=== PATIENT | male | born 1935 | race Caucasian/White ===

== ENCOUNTER 2017-01-08 07:30 | Emergency (ER) | payer OTHER ==
[~2017-01-08] VITALS: Ht 170.2 cm; Wt 56.0 kg
[2017-01-08 07:37] VITALS: BP 135/60; PULSE 91; RESP 16; TEMP 98; O2SAT 98
[2017-01-08] MEDS ORDERED: WARF4TAB51 PO (07:56)
[2017-01-08] MEDS ORDERED: VENL50TA PO (07:56)
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
== END 2017-01-08 09:19 | disposition home or self-care (01) ==
LOC: PHED 07:30
DX: T83.9XXA Unspecified complication of genitourinary prosthetic device, implant and graft, initial encounter (principal); Z87.448 Personal history of other diseases of urinary system
CPT/HCPCS: 51702

== ENCOUNTER 2018-02-15 00:11 | Observation (INO) ==
[2018-02-15] MEDS ORDERED: Morphine Sulfate Inj 2 MG/ML Vial IV.PUSH ONE (00:57)
--- NOTE | 2018-02-15 01:08 | ED ---
HPI General Chief complaint: Abdominal Pain Stated complaint: Diarrhea & abdom pain x 1 day Time Seen by Provider: 02/15/18 00:34 Source: patient Mode of arrival: ambulatory Limitations: no limitations History of Present Illness HPI narrative: 82yo F with PMH of afib on coumadin, Hanover's disease, chronic underwood catheter since 2013 here with c/o lower abdominal pain for a few days. +Nonbloody diarrhea. Said he had his underwood catheter replaced 5 days ago at the [facility]. Denies any fever, chest pain, sob, n/v, focal weakness or numbness. Related Data Home Medications Medication Instructions Recorded Confirmed metoprolol succinate 25 mg PO DAILY 11/11/17 02/15/18 venlafaxine [Effexor XR] 150 mg PO DAILY 11/11/17 12/07/17 warfarin 2 mg PO DAILY 11/11/17 02/15/18 warfarin 3 mg PO DAILY 12/07/17 02/15/18 Allergies Allergy/AdvReac Type Severity Reaction Status Date / Time iodine Allergy Severe Anaphylaxis Verified 02/15/18 00:31 Review of Systems ROS: all other systems reviewed are negative [facility] Medical History Medical History Hanover's disease (Acute) Kidney failure (Acute) Kidney stones (Acute) Cardiomyopathy (Acute) Coronary artery disease (Acute) History of frequent urinary tract infections (Acute) Hypertension (Acute) Surgical History Surgical History History of kidney surgery (Acute) History of knee surgery (Acute) Hx of appendectomy (Acute) Hx of tonsillectomy (Acute) Hx of cardiac cath (Acute) Social History Social History Substance History: No History of Abuse Second Hand Smoke Exposure: No Smoking Status: Never smoker How Often Do You Have a Drink Containing Alcohol: Never Recent Travel in [facility] within the Last 8 Weeks: No Recent Out of Country Travel within the Last 8 Weeks: No Immunization History Tetanus Immunization: Unsure Exam Narrative Exam Narrative: GENERAL: 82yo M in mild distress. SKIN: Focused skin assessment warm/dry. HEAD: Atraumatic. Normocephalic. EYES: Pupils equal and round. No scleral icterus. No injection or drainage. CARDIOVASCULAR: Regular rate and rhythm. No murmur appreciated. RESPIRATORY: No accessory muscle use. Clear to auscultation. Breath sounds equal bilaterally. GASTROINTESTINAL: Abdomen soft, +TTP RLQ, suprapubic. No rebound tenderness or guarding. : Underwood in place with very small amount of yellow urine. No testicular ttp. No blood. MUSCULOSKELETAL: No obvious deformities. No clubbing. No cyanosis. No edema. NEUROLOGICAL: Awake and alert. No obvious cranial nerve deficits. Motor grossly within normal limits. Normal speech. PSYCHIATRIC: Appropriate mood and affect; insight and judgment normal. Course Initial Documented Vital Signs Temperature 98.5 F 02/15/18 00:17 Pulse Rate 86 02/15/18 00:17 Respiratory Rate 16 02/15/18 00:17 Blood Pressure 176/86 H 02/15/18 00:17 Pulse Oximetry 96 02/15/18 00:17 Last Documented Vital Signs Temperature 98.5 F 02/15/18 00:17 Pulse Rate 83 02/15/18 02:15 Respiratory Rate 18 02/15/18 02:15 Blood Pressure 164/77 H 02/15/18 02:15 Pulse Oximetry 100 02/15/18 02:15 Medical Decision Making [facility] Narrative Medical decision making narrative: 82yo M here with lower abdominal pain and diarrhea. Pt had appendectomy already. Labs reviewed, no leukocytosis. CMP unremarkable. Lipase normal. INR subtherapeutic at 1.6. CT a/p showed moderate to marked bilateral hydronephrosis with a distended urinary bladder despite a underwood catheter in place. 5mm right UVJ stone. Bilateral hydroureter to the level of the UVJ with 5mm stone on right. Prostate gland is moderately enlarged impinging on the bladder base. Underwood catheter was changed and 1000mg of urine came out. UA showed positive nitrate. WBC 21-50. Pt given ceftriaxone. I feel that with bilateral hydronephrosis and hydroureter as well as enlarged prostate and UTI, pt will benefit from observation and urology consult. Discussed with Dr. Ponce and accepted to her service. Medical Screen Exam Complete: Yes Emergency Medical Condition: Yes Differential Diagnosis Differential Diagnosis: Colitis vs. malignancy vs. obstruction Lab Data Result diagrams: 02/15/18 01:10 02/15/18 01:10 Lab Results 02/15/18 02/15/18 02/15/18 Range/Units 01:10 01:10 01:10 CBC w Diff Auto diff final WBC 9.8 (4.0-11.0) th/mm3 RBC 4.22 L (4.50-5.90) mil/mm3 Hgb 13.3 (13.0-17.0) gm/dL Hct 38.1 L (39.0-51.0) % MCV 90.3 (80.0-100.0) fL MCH 31.5 (27.0-34.0) pg MCHC 34.9 (32.0-36.0) % RDW 13.9 (11.6-17.2) % Plt Count 323 (150-450) th/mm3 MPV 7.5 (7.0-11.0) fL Neut % (Auto) 60.7 (16.0-70.0) % Lymph % (Auto) 27.4 (9.0-44.0) % [place] % (Auto) 8.4 H (0.0-8.0) % Eos % (Auto) 2.6 (0.0-4.0) % Baso % (Auto) 0.9 (0.0-2.0) % Neut # (Auto) 5.9 (1.8-7.7) th/mm3 Lymph # (Auto) 2.7 (1.0-4.8) th/mm3 [place] # (Auto) 0.8 (0.0-0.9) th/mm3 Eos # (Auto) 0.3 (0.0-0.4) th/mm3 Baso # (Auto) 0.1 (0.0-0.2) th/mm3 WBC Differential . Differential Comment . PT 15.9 H (9.8-11.6) sec INR 1.6 Ratio APTT 36.1 H (24.3-30.1) sec Sodium 142 (136-145) meq/L Potassium 4.5 (3.5-5.1) meq/L Chloride 108 H (98-107) meq/L Carbon Dioxide 26.9 (21.0-32.0) meq/L Anion Gap 7 (5-15) meq/L BUN 16 (7-18) mg/dL Creatinine 0.93 (0.60-1.30) mg/dL Estimated GFR 77 L (>89) mL/min Random Glucose 93 (74-106) mg/dL Calcium 9.4 (8.5-10.1) mg/dL Total Bilirubin 0.3 (0.2-1.0) mg/dL AST 24 (15-37) U/L ALT 24 (12-78) U/L Alkaline Phosphatase 105 (45-117) U/L Total Protein 7.3 (6.4-8.2) g/dL Albumin 3.5 (3.4-5.0) g/dL Lipase 80 (73-393) U/L Urine Color (Yellw/Straw) Urine Clarity (Clear) Urine pH (5.0-8.5) Ur Specific [place] (1.002-1.035) Urine Protein (Neg-Trace) mg/dL Urine Glucose (UA) (Negative) mg/dL Urine Ketones (Negative) mg/dL Urine Occult Blood (Negative) Urine Nitrate (Negative) Urine Bilirubin (Negative) Urine Urobilinogen (Less than 2) mg/dL Ur Leukocyte Esterase (Negative) Urine RBC (0-3) /hpf Urine WBC (0-5) /hpf Ur Squamous Epith Cells (0-5) /hpf Urine Bacteria (None) /hpf Micro UA Comment Ur Microscopic Review Urine Culture Comments 02/15/18 Range/Units 03:00 CBC w Diff WBC (4.0-11.0) th/mm3 RBC (4.50-5.90) mil/mm3 Hgb (13.0-17.0) gm/dL Hct (39.0-51.0) % MCV (80.0-100.0) fL MCH (27.0-34.0) pg MCHC (32.0-36.0) % RDW (11.6-17.2) % Plt Count (150-450) th/mm3 MPV (7.0-11.0) fL Neut % (Auto) (16.0-70.0) % Lymph % (Auto) (9.0-44.0) % [place] % (Auto) (0.0-8.0) % Eos % (Auto) (0.0-4.0) % Baso % (Auto) (0.0-2.0) % Neut # (Auto) (1.8-7.7) th/mm3 Lymph # (Auto) (1.0-4.8) th/mm3 [place] # (Auto) (0.0-0.9) th/mm3 Eos # (Auto) (0.0-0.4) th/mm3 Baso # (Auto) (0.0-0.2) th/mm3 WBC Differential Differential Comment PT (9.8-11.6) sec INR Ratio APTT (24.3-30.1) sec Sodium (136-145) meq/L Potassium (3.5-5.1) meq/L Chloride (98-107) meq/L Carbon Dioxide (21.0-32.0) meq/L Anion Gap (5-15) meq/L BUN (7-18) mg/dL Creatinine (0.60-1.30) mg/dL Estimated GFR (>89) mL/min Random Glucose (74-106) mg/dL Calcium (8.5-10.1) mg/dL Total Bilirubin (0.2-1.0) mg/dL AST (15-37) U/L ALT (12-78) U/L Alkaline Phosphatase (45-117) U/L Total Protein (6.4-8.2) g/dL Albumin (3.4-5.0) g/dL Lipase (73-393) U/L Urine Color Yellow (Yellw/Straw) Urine Clarity Cloudy H (Clear) Urine pH 8.5 (5.0-8.5) Ur Specific [place] 1.010 (1.002-1.035) Urine Protein Trace (Neg-Trace) mg/dL Urine Glucose (UA) Negative (Negative) mg/dL Urine Ketones Negative (Negative) mg/dL Urine Occult Blood Large H (Negative) Urine Nitrate Positive H (Negative) Urine Bilirubin Negative (Negative) Urine Urobilinogen 0.2 (Less than 2) mg/dL Ur Leukocyte Esterase Large H (Negative) Urine RBC 4-15 H (0-3) /hpf Urine WBC 21-50 H (0-5) /hpf Ur Squamous Epith Cells 0-5 (0-5) /hpf Urine Bacteria Many H (None) /hpf Micro UA Comment Cath-culture ind Ur Microscopic Review Microscopic reviewed Urine Culture Comments Cath-cult indicated Imaging Data Radiologist's impression: Abdomen/Pelvis CT 02/15/18 00:56 CONCLUSION: 1. Moderate to marked bilateral hydronephrosis with a distended urinary bladder despite a Underwood in place. Correlation with function of the Underwood is recommended. 5 mm right ureterovesical junction stone. Discharge Plan Discharge Disposition Patient Disposition: 30 Still Patient Discharge Details Diagnosis: Acute bilateral obstructive uropathy Physicians Team ED Provider: Alicia Barrios Primary Care Provider: [facility],Physician [facility] /Orders / Referrals /Forms Prescriptions: No Action warfarin 1 mg Tablet 2 mg PO DAILY RF: 0 metoprolol succinate 25 mg Tablet Extended Release 24 Hr 25 mg PO DAILY RF: 0 venlafaxine [Effexor XR] 75 mg Capsule,Extended Release 24hr 150 mg PO DAILY RF: 0 warfarin 3 mg Tablet 3 mg PO DAILY RF: 0 Discharge Interventions Interventions: Vital Signs Last Done: 02/15/18 02:15 Status ED Status: Admitted Observation Patient
[2018-02-15 01:20] LABS: Baso # (Auto) 0.1 th/mm3 (0.0-0.2); Baso % (Auto) 0.9 % (0.0-2.0); Eos # (Auto) 0.3 th/mm3 (0.0-0.4); Eos % (Auto) 2.6 % (0.0-4.0); Hematocrit 38.1 % (39.0-51.0); Hemoglobin 13.3 gm/dL (13.0-17.0); Lymph # (Auto) 2.7 th/mm3 (1.0-4.8); Lymph % (Auto) 27.4 % (9.0-44.0); Mean Corpuscular HGB Conc 34.9 % (32.0-36.0); Mean Corpuscular Hemoglobin 31.5 pg (27.0-34.0); Mean Corpuscular Volume 90.3 fL (80.0-100.0); Mean Platelet Volume 7.5 fL (7.0-11.0); Mono # (Auto) 0.8 th/mm3 (0.0-0.9); Mono % (Auto) 8.4 % (0.0-8.0); Neut # (Auto) 5.9 th/mm3 (1.8-7.7); Neut % (Auto) 60.7 % (16.0-70.0); Platelet Count 323 th/mm3 (150-450); Red Blood Count 4.22 mil/mm3 (4.50-5.90); Red Cell Distribution Width 13.9 % (11.6-17.2); White Blood Count 9.8 th/mm3 (4.0-11.0)
[2018-02-15 01:27] LABS: Chloride 108 meq/L (98-107); Potassium 4.5 meq/L (3.5-5.1); Sodium 142 meq/L (136-145)
[2018-02-15 01:30] LABS: Calcium 9.4 mg/dL (8.5-10.1)
[2018-02-15 01:31] LABS: Activated Partial Thrombo Time 36.1 sec (24.3-30.1); Albumin 3.5 g/dL (3.4-5.0); Anion Gap 7 meq/L (5-15); Blood Urea Nitrogen 16 mg/dL (7-18); Carbon Dioxide 26.9 meq/L (21.0-32.0); Glucose,Random 93 mg/dL (74-106); INR 1.6 Ratio; Lipase 80 U/L (73-393); Prothrombin Time 15.9 sec (9.8-11.6)
[2018-02-15 01:34] LABS: Alanine Aminotransferase 24 U/L (12-78); Aspartate Aminotransferase 24 U/L (15-37); Glomerular Filtration Rate 77 mL/min (>89)
[2018-02-15 01:36] LABS: Total Protein 7.3 g/dL (6.4-8.2)
[2018-02-15 01:37] LABS: Alkaline Phosphatase 105 U/L (45-117)
[2018-02-15] MEDS ORDERED: Ketorolac Inj 30 MG/ML (IVP) Vial IV.PUSH ONE (02:00)
--- NOTE | 2018-02-15 02:20 | CT ---
EXAM DATE: 02/15/2018 1:12 AM EDT AGE/SEX: 82 years / Male INDICATIONS: Intermittent epigastric pain for one week. Diarrhea. CLINICAL DATA: This is the patient's initial encounter. Patient reports that signs and symptoms have been present for 1 week and indicates a pain score of 5/10. MEDICAL/SURGICAL HISTORY: Hypertension. Renal failure, chronic. Cardiovascular disease. Griffin ington's disease. Appendectomy. Renal surgery. RADIATION DOSE: 7.09 CTDI (mGy) COMPARISON: No prior exams available for comparison. TECHNIQUE: Multiple contiguous axial images were obtained through the abdomen. Images were obtained using multiple row detector helical technique. Using automated exposure control and adjustment of the mA and/or kV according to patient size, radiation dose was kept as low as reasonably achievable to o btain optimal diagnostic quality images. DICOM format image data is available electronically for rev iew and comparison. FINDINGS: Examination of the lung bases demonstrates no abnormality. No pleural fluid is identified. No pulmona ry nodules are present. The liver and spleen are normal in size and no focal defects are identified. The gallbladder and pancreas are unremarkable. No intrahepatic or extrahepatic ductal dilatation is seen. The adrenal glands are unremarkable. There is moderate to marked hydronephrosis bilaterally w ith bilateral extrarenal pelves and nonobstructing stones in the calyces measuring 15 mm on the right and 10 mm on the left. There is bilateral hydroureter to the level of the ureterovesical junction wi th a 5 mm stone on the right. Multiple small bladder calculi are present. The bladder is distended wi th a Melendez catheter in place and correlation with function of the catheter is recommended. The prosta te gland is moderately enlarged impinging on the bladder base. There is diverticulosis without eviden ce of diverticulitis. CONCLUSION: 1. Moderate to marked bilateral hydronephrosis with a distended urinary bladder despite a Melendez in p lace. Correlation with function of the Melendez is recommended. 5 mm right ureterovesical junction stone . Electronically signed by: Sudeep Lizama MD 02/15/2018 2:18 AM EDT
[2018-02-15 03:03] LABS: Bilirubin,Urine Negative (Negative); Clarity,Urine Cloudy (Clear); Color,Urine Yellow (Yellw/Straw); Glucose,Urine (UA) Negative (Negative); Leukocyte Esterase,Urine Large (Negative); Nitrite,Urine Positive (Negative); PH,Urine 8.5 (5.0-8.5); Urobilinogen,Urine 0.2 mg/dL (Less than 2)
[2018-02-15] MEDS ORDERED: Acetaminophen 500 MG Tablet PO ONE (03:06)
[2018-02-15 03:07] LABS: Bacteria,Urine Many /hpf; Squamous Epithelial Cell,Urine 0-5 /hpf (0-5); WBC,Urine 21-50 /hpf (0-5)
[2018-02-15] MEDS ORDERED: Acetaminophen 325 MG Tablet PO PRN (03:18)
[2018-02-15] MEDS ORDERED: Morphine Sulfate Inj 2 MG/ML Vial IV.PUSH PRN (03:18)
[2018-02-15] MEDS ORDERED: Bisacodyl 10 MG Supp RECTAL PRN (03:18)
[2018-02-15] MEDS: Sod Chloride 0.9% Inj 1,000 ML IV.CONT SCH ×3 (03:47→17:11)
--- NOTE | 2018-02-15 08:19 | P.HP ---
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 Patient states that he was seen by his neurologist at the [place], Dr. Frausto, roughly 5 days ago he did have his chronic Melendez catheter replaced, since that time he states he has had abdominal pain located in his bilateral lower quadrants. He states that he also has associated diarrhea. He denies any recent antibiotic use. He denies any recent fever, chills, headache, chest pain , nausea, vomiting, diarrhea or dysuria. Patient does live at home with his daughter, is able to perform most ADLs per self, uses a walker at home. At the time of assessment patient states that his pain is improved. Melendez catheter in place with clear yellow urine noted. Patient does complain of continued diarrhea even this morning. Will send stool studies. Abdominal/pelvis CT showing bilateral hydronephrosis. Urology consulted and awaiting input. UTI and on ceftriaxone IV. - Diagnosis (1) Hydronephrosis (2) Acute bilateral obstructive uropathy Review of Systems All other systems reviewed negative except as stated in HPI PMFSH - History History Provided By: Patient - Medical History Medical History: Medical History (Last Reviewed 02/15/18 @ 08:17 by Darleen Benitez) Kemper's disease Kidney failure Kidney stones Cardiomyopathy Coronary artery disease History of frequent urinary tract infections Hypertension - Surgical History Surgical History: Surgical History (Last Reviewed 02/15/18 @ 08:17 by Darleen Benitez) History of kidney surgery History of knee surgery Hx of appendectomy Hx of tonsillectomy Hx of cardiac cath - Family History Family History: Family History (Last Updated 02/15/18 @ 08:17 by Darleen Benitez) Other Family history non-contributory - Social History I have reviewed the patient's Social History: Yes - Tobacco History Second Hand Smoke Exposure: No Smoking Status: Never smoker - Alcohol History How Often Do You Have a Drink Containing Alcohol: Never - Substance Use History Substance History: No History of Abuse - Travel History Recent Travel in the [place] Within the Last 8 Weeks: No Recent Travel Out of the Country Within the Last 8 Weeks: No - Immunization History Tetanus Immunization: Unsure Medications and Allergies Active Medications: Active Medications Acetaminophen (Tylenol) 650 mg PO Q4H PRN PRN Reason: Temp > 100.4 Al Hydroxide/Mg Hydroxide (Milk Of Magnesia Liq) 30 ml PO Q12H PRN PRN Reason: Mild Constipation Bisacodyl (Dulcolax Supp) 10 mg RECTAL DAILY PRN PRN Reason: SEVERE CONSITIPATION Ceftriaxone Sodium 1,000 mg/ (Sodium Chloride) 100 mls @ 200 mls/hr IV.SIG Q24H [place] Sodium Chloride (Ns Inj) 1,000 mls @ 70 mls/hr IV.CONT .[id number] [facility] Last Infusion: 02/15/18 04:20 Dose: 70 mls/hr Lactulose (Lactulose Liq) 30 ml PO DAILY PRN PRN Reason: SEVERE CONSITIPATION Morphine Sulfate (Morphine Inj) 2 mg IV.PUSH Q4H PRN PRN Reason: pain 6-10 Ondansetron HCl (Zofran Inj) 4 mg IV.PUSH Q6H PRN PRN Reason: NAUSEA OR VOMITING Senna/Docusate Sodium (Lenora-Colace) 1 tab PO BID [facility] Sennosides (Senokot) 17.2 mg PO Q12H PRN PRN Reason: Moderate Constipation Sodium Chloride (Ns Flush) 2 ml IV.FLUSH PRN PRN PRN Reason: FLUSH AFTER USING IV ACCESS Allergies Allergy/AdvReac Type Severity Reaction Status Date / Time iodine Allergy Severe Anaphylaxis Verified 02/15/18 00:31 Home Medications Medication Instructions Recorded Confirmed Type warfarin 2 mg PO DAILY 11/11/17 02/15/18 History warfarin 3 mg PO DAILY 12/07/17 02/15/18 History metoprolol succinate 25 mg PO DAILY 02/15/18 02/15/18 History midodrine 2.5 mg PO DAILY 02/15/18 02/15/18 History midodrine 5 mg PO DAILY 02/15/18 02/15/18 History mirtazapine 15 mg PO DAILY 02/15/18 02/15/18 History Exam Vital signs: Vital Signs 02/15/18 00:17 02/15/18 01:00 02/15/18 02:15 Temperature 98.5 F Pulse Rate 86 85 83 Respiratory Rate 16 18 18 Blood Pressure 176/86 H 151/74 H 164/77 H Pulse Oximetry 96 98 100 02/15/18 04:20 02/15/18 04:55 Temperature Pulse Rate 78 Respiratory Rate 16 16 Blood Pressure 115/63 Pulse Oximetry Intake & Output 02/14/18 02/15/18 02/15/18 18:59 06:59 18:59 Intake Total 300 / 300 Output Total 1200 / 1200 Balance -900 / -900 Weight 56.3 kg Intake: IV 300 / 300 NS Inj 1,000 ML @ 70 mls/hr IV. 200 / 200 CONT .[id number] MAKENZ[facility] Rx#: [id number] Rocephin Inj 1,000 MG In NS Inj 100 / 100 100 ML @ 200 mls/hr IV.SIG ONCE ONE Rx#:[id number] Output: Urine Amount (Catheter) 1200 / 1200 Indwelling Urethral Catheter 1200 / 1200 Other: Weight On Admission 56.3 kg Narrative: GENERAL: Well-developed, well-nourished patient in [facility]. SKIN: Warm and dry. No rash. HEAD: Normocephalic. Atraumatic. EYES: Pupils equal and round. No scleral icterus. No injection or drainage. ENT: No nasal bleeding or discharge. Mucous membranes pink and moist. NECK: Supple. Trachea midline. CARDIOVASCULAR: Regular rate and rhythm. S1, S2 noted. RESPIRATORY: No accessory muscle use. Clear to auscultation. Breath sounds equal bilaterally. GASTROINTESTINAL: Abdomen soft, non-tender, nondistended. Normoactive bowel sounds x4. : Melendez catheter in place with clear yellow urine. MUSCULOSKELETAL: No obvious deformities. Extremities without clubbing, cyanosis , or edema. NEUROLOGICAL: Awake and alert. No obvious cranial nerve deficits. Motor grossly within normal limits. 5/5 muscle strength in bilateral upper and lower extremities. Normal speech. PSYCHIATRIC: Appropriate mood and affect; insight and judgment normal. Results - Labs CBC & Chem 7: 02/15/18 01:10 02/15/18 01:10 Labs: Laboratory Results - last 24 hr 02/15/18 02/15/18 02/15/18 01:10 01:10 01:10 CBC w Diff Auto diff final WBC 9.8 RBC 4.22 L Hgb 13.3 Hct 38.1 L MCV 90.3 MCH 31.5 MCHC 34.9 RDW 13.9 Plt Count 323 MPV 7.5 Neut % (Auto) 60.7 Lymph % (Auto) 27.4 [place] % (Auto) 8.4 H Eos % (Auto) 2.6 Baso % (Auto) 0.9 Neut # (Auto) 5.9 Lymph # (Auto) 2.7 [place] # (Auto) 0.8 Eos # (Auto) 0.3 Baso # (Auto) 0.1 WBC Differential . Differential Comment . PT 15.9 H INR 1.6 APTT 36.1 H Sodium 142 Potassium 4.5 Chloride 108 H Carbon Dioxide 26.9 Anion Gap 7 BUN 16 Creatinine 0.93 Estimated GFR 77 L Random Glucose 93 Calcium 9.4 Total Bilirubin 0.3 AST 24 ALT 24 Alkaline Phosphatase 105 Total Protein 7.3 Albumin 3.5 Lipase 80 Urine Color Urine Clarity Urine pH Ur Specific [place] Urine Protein Urine Glucose (UA) Urine Ketones Urine Occult Blood Urine Nitrate Urine Bilirubin Urine Urobilinogen Ur Leukocyte Esterase Urine RBC Urine WBC Ur Squamous Epith Cells Urine Bacteria Micro UA Comment Ur Microscopic Review Urine Culture Comments 02/15/18 03:00 CBC w Diff WBC RBC Hgb Hct MCV MCH MCHC RDW Plt Count MPV Neut % (Auto) Lymph % (Auto) [place] % (Auto) Eos % (Auto) Baso % (Auto) Neut # (Auto) Lymph # (Auto) [place] # (Auto) Eos # (Auto) Baso # (Auto) WBC Differential Differential Comment PT INR APTT Sodium Potassium Chloride Carbon Dioxide Anion Gap BUN Creatinine Estimated GFR Random Glucose Calcium Total Bilirubin AST ALT Alkaline Phosphatase Total Protein Albumin Lipase Urine Color Yellow Urine Clarity Cloudy H Urine pH 8.5 Ur Specific [place] 1.010 Urine Protein Trace Urine Glucose (UA) Negative Urine Ketones Negative Urine Occult Blood Large H Urine Nitrate Positive H Urine Bilirubin Negative Urine Urobilinogen 0.2 Ur Leukocyte Esterase Large H Urine RBC 4-15 H Urine WBC 21-50 H Ur Squamous Epith Cells 0-5 Urine Bacteria Many H Micro UA Comment Cath-culture ind Ur Microscopic Review Microscopic reviewed Urine Culture Comments Cath-cult indicated - Imaging Impressions Abdomen/Pelvis CT 02/15/18 00:56 CONCLUSION: 1. Moderate to marked bilateral hydronephrosis with a distended urinary bladder despite a Melendez in place. Correlation with function of the Melendez is recommended. 5 mm right ureterovesical junction stone. Caprini VTE Risk Assessment Caprini VTE Risk Assessment: Moderate/High Risk (score >= 2) Caprini Risk Assessment Model: Point Value = 1 Point Value = 2 Point Value = 3 Point Value = 5 Age 41-60 Minor surgery BMI > 25 kg/m2 Swollen legs Varicose veins or History of unexplained or recurrent spontaneous Oral contraceptives or hormone replacement Sepsis (< 1 month) Serious lung disease, including pneumonia (< 1 month) Abnormal pulmonary function Acute myocardial infarction Congestive heart failure (< 1 month) History of inflammatory bowel disease Medical patient at bed rest Age 61-74 Arthroscopic surgery Major open surgery (> 45 min) Laparoscopic surgery (> 45 min) Malignancy Confined to bed (> 72 hours) Immobilizing plaster cast Central venous access Age >= 75 History of VTE Family history of VTE Factor V Leiden Prothrombin [id number] Lupus anticoagulant Anticardiolipin antibodies Elevated serum homocysteine Heparin-induced thrombocytopenia Other congenital or acquired thrombophilia Stroke (< 1 month) Elective arthroplasty Hip, pelvis, or leg fracture Acute spinal cord injury (< 1 month) Prophylaxis Regimen: Total Risk Factor Score Risk Level Prophylaxis Regimen 0-1 Low Early ambulation 2 Moderate Order ONE of the following: *Sequential Compression Device (SCD) *Heparin 5000 units SQ BID 3-4 Higher Order ONE of the following medications: *Heparin 5000 units SQ TID *Enoxaparin/Lovenox 40 mg SQ daily (WT < 150 kg, CrCl > 30 mL/min) *Enoxaparin/Lovenox 30 mg SQ daily (WT < 150 kg, CrCl > 10-29 mL/min) *Enoxaparin/Lovenox 30 mg SQ BID (WT < 150 kg, CrCl > 30 mL/min) AND/OR *Sequential Compression Device (SCD) 5 or more Highest Order ONE of the following medications: *Heparin 5000 units SQ TID (Preferred with Epidurals) *Enoxaparin/Lovenox 40 mg SQ daily (WT < 150 kg, CrCl > 30 mL/min) *Enoxaparin/Lovenox 30 mg SQ daily (WT < 150 kg, CrCl > 10-29 mL/min) *Enoxaparin/Lovenox 30 mg SQ BID (WT < 150 kg, CrCl > 30 mL/min) AND *Sequential Compression Device (SCD) Assessment and Plan - Assessment (1) Hydronephrosis Code(s): N13.30 - Unspecified hydronephrosis Status: Acute (2) Acute bilateral obstructive uropathy Code(s): N13.9 - Obstructive and reflux uropathy, unspecified Status: Acute - Plan This is an 82-year-old male patient with: Bilateral hydronephrosis, right nephrolithiasis History of urinary retention with chronic Melendez catheter Enlarged prostate Abnormal UA rule out UTI -Melendez catheter has been changed to ED. Abdominal pain has improved. Abdominal /pelvis CT has been done showing bilateral hydronephrosis with a right 5 millimeter stone in the UVJ. -Urology consulted, input and recommendations pending. -UA showing presence of nitrite as well as leukocyte esterase white blood cells. Urine culture pending. Patient started on ceftriaxone IV in ED, will continue. Continue to monitor urine culture. -Continue IV fluid, ensure hydration. We will keep n.p.o. for now while we await for urology input. -Pain control with IV morphine as needed per pain scale. Supportive care. Diarrhea -Stool studies and C. difficile ordered. Will follow. -Continue IV hydration. DVT prophylaxis: SCDs. Heparin.
[2018-02-15] MEDS: Senna/Docusate Sodium 8.6/50 MG Tablet PO SCH ×2 (08:31→20:42)
[2018-02-15] MEDS ORDERED: Warfarin Consult Pharmacy OTHER PRN (08:35)
[2018-02-15] MEDS ORDERED: Mirtazapine 15 MG Tablet PO SCH ×2 (09:00→21:00)
--- NOTE | 2018-02-15 12:09 | P.CONURO ---
History of Present Illness Service: Urology Consult date: 02/15/18 Requesting Physician: Darleen Benitez Primary Care Provider: Physician [facility] Chief Complaint: Abdominal pain and diarrhea History of Present Illness: This is a pleasant 82-year-old male patient with known medical history of atrial fibrillation on anticoagulation, Olivier's disease, chronic Underwood catheter who presented to the ED with complaints of abdominal pain as well as diarrhea. Patient states that he was seen by his neurologist at the [place], Dr. Frausto, roughly 5 days ago he did have his chronic Underwood catheter replaced, since that time he states he has had abdominal pain located in his bilateral lower quadrants. He states that he also has associated diarrhea. He denies any recent antibiotic use. He denies any recent fever, chills, headache, chest pain, nausea, vomiting, diarrhea or dysuria. At ER assesment underwood was in place and was draining yellow urine Abdominal/pelvis CT showing bilateral hydronephrosis. He was started on IV fluids and antbx. Urology consulted VS and labs are stable. UC pending. CT reviewed, he has b/l renal stones, 5mm Rt UVJ and b/l hydro, most likely due to overdistended bladder. he has several bladder stones, enlarged prostate and possibly has blockage of his underwood with a small bladder stone not allowing completely empty his bladder. As per pt underwood was changed last night and > 1L drained Review of Systems All other systems reviewed negative except as stated in HPI PMFSH - History History Provided By: Patient - Medical History Medical History: Medical History (Last Reviewed 02/15/18 @ 09:55 by Alexandro Saxena) Olivier's disease Kidney failure Kidney stones Cardiomyopathy Coronary artery disease History of frequent urinary tract infections Hypertension - Surgical History Surgical History: Surgical History (Last Reviewed 02/15/18 @ 09:55 by Alexandro Saxena) History of kidney surgery History of knee surgery Hx of appendectomy Hx of tonsillectomy Hx of cardiac cath - Family History Family History: Family History (Last Updated 02/15/18 @ 08:17 by Darleen Benitez) Other Family history non-contributory - Tobacco History Second Hand Smoke Exposure: No Smoking Status: Never smoker - Alcohol History How Often Do You Have a Drink Containing Alcohol: Never - Substance Use History Substance History: No History of Abuse - Travel History Recent Travel in the [place] Within the Last 8 Weeks: No Recent Travel Out of the Country Within the Last 8 Weeks: No - Immunization History Tetanus Immunization: Unsure Medications and Allergies Active Medications: Active Medications Acetaminophen (Tylenol) 650 mg PO Q4H PRN PRN Reason: Temp > 100.4 Al Hydroxide/Mg Hydroxide (Milk Of Magnesia Liq) 30 ml PO Q12H PRN PRN Reason: Mild Constipation Bisacodyl (Dulcolax Supp) 10 mg RECTAL DAILY PRN PRN Reason: SEVERE CONSITIPATION Heparin Sodium (Porcine) (Heparin Inj) 5,000 units SQ Q12HR [facility] Ceftriaxone Sodium 1,000 mg/ (Sodium Chloride) 100 mls @ 200 mls/hr IV.SIG Q24H [facility] Sodium Chloride (Ns Inj) 1,000 mls @ 70 mls/hr IV.CONT .[id number] [facility] Last Infusion: 02/15/18 04:20 Dose: 70 mls/hr Lactulose (Lactulose Liq) 30 ml PO DAILY PRN PRN Reason: SEVERE CONSITIPATION Metoprolol Succinate (Toprol Xl) 25 mg PO DAILY [facility] Last Admin: 02/15/18 09:50 Dose: 25 mg Mirtazapine (Remeron) 15 mg PO HS [facility] Morphine Sulfate (Morphine Inj) 2 mg IV.PUSH Q4H PRN PRN Reason: pain 6-10 Ondansetron HCl (Zofran Inj) 4 mg IV.PUSH Q6H PRN PRN Reason: NAUSEA OR VOMITING Pharmacy Profile Note (Coumadin Consult Pharmacy) 1 each OTHER UNSCH PRN PRN Reason: PHARMACY DOCUMENTATION Senna/Docusate Sodium (Lenora-Colace) 1 tab PO BID [facility] Last Admin: 02/15/18 08:31 Dose: Not Given Sennosides (Senokot) 17.2 mg PO Q12H PRN PRN Reason: Moderate Constipation Sodium Chloride (Ns Flush) 2 ml IV.FLUSH PRN PRN PRN Reason: FLUSH AFTER USING IV ACCESS Warfarin Sodium (Coumadin) 2 mg PO MoFr@1600 [facility] Warfarin Sodium (Coumadin) 3 mg PO SuTuWeThSa@1600 [facility] Allergies Allergy/AdvReac Type Severity Reaction Status Date / Time iodine Allergy Severe Anaphylaxis Verified 02/15/18 00:31 Home Medications Medication Instructions Recorded Confirmed Type warfarin 2 mg PO DAILY 11/11/17 02/15/18 History warfarin 3 mg PO DAILY 12/07/17 02/15/18 History metoprolol succinate 25 mg PO DAILY 02/15/18 02/15/18 History midodrine 2.5 mg PO HS 02/15/18 02/15/18 History midodrine 5 mg PO DAILY 02/15/18 02/15/18 History mirtazapine 15 mg PO HS 02/15/18 02/15/18 History venlafaxine 150 mg PO DAILY 02/15/18 02/15/18 History Physical Exam Vital Signs - 24 hr 02/15/18 00:17 02/15/18 01:00 02/15/18 02:15 Temperature 98.5 F Pulse Rate 86 85 83 Respiratory Rate 16 18 18 Blood Pressure 176/86 H 151/74 H 164/77 H Pulse Oximetry 96 98 100 02/15/18 04:20 02/15/18 04:55 02/15/18 08:00 Temperature 97.7 F Pulse Rate 78 74 Respiratory Rate 16 16 20 Blood Pressure 115/63 114/56 L Pulse Oximetry 97 Physical Exam: GENERAL: This is a well-nourished, well-developed patient, in no apparent distress. SKIN: No rashes, ecchymoses or lesions. Cool and dry. HEAD: Atraumatic. Normocephalic. CARDIOVASCULAR: Regular rate and rhythm without murmurs, gallops, or rubs. RESPIRATORY: Clear to auscultation. Breath sounds equal bilaterally. No wheezes , rales, or rhonchi. GASTROINTESTINAL: Abdomen soft, non-tender, nondistended. GENITOURINARY: No CVAT Underwood is in place. Bladder is not distended MUSCULOSKELETAL: Extremities without clubbing, cyanosis, or edema. NEUROLOGICAL: Awake and alert. Laboratory Results - last 24 hr 02/15/18 02/15/18 02/15/18 01:10 01:10 01:10 CBC w Diff Auto diff final WBC 9.8 RBC 4.22 L Hgb 13.3 Hct 38.1 L MCV 90.3 MCH 31.5 MCHC 34.9 RDW 13.9 Plt Count 323 MPV 7.5 Neut % (Auto) 60.7 Lymph % (Auto) 27.4 [place] % (Auto) 8.4 H Eos % (Auto) 2.6 Baso % (Auto) 0.9 Neut # (Auto) 5.9 Lymph # (Auto) 2.7 [place] # (Auto) 0.8 Eos # (Auto) 0.3 Baso # (Auto) 0.1 WBC Differential . Differential Comment . PT 15.9 H INR 1.6 APTT 36.1 H Sodium 142 Potassium 4.5 Chloride 108 H Carbon Dioxide 26.9 Anion Gap 7 BUN 16 Creatinine 0.93 Estimated GFR 77 L Random Glucose 93 Calcium 9.4 Total Bilirubin 0.3 AST 24 ALT 24 Alkaline Phosphatase 105 Total Protein 7.3 Albumin 3.5 Lipase 80 Urine Color Urine Clarity Urine pH Ur Specific [place] Urine Protein Urine Glucose (UA) Urine Ketones Urine Occult Blood Urine Nitrate Urine Bilirubin Urine Urobilinogen Ur Leukocyte Esterase Urine RBC Urine WBC Ur Squamous Epith Cells Urine Bacteria Micro UA Comment Ur Microscopic Review Urine Culture Comments 02/15/18 03:00 CBC w Diff WBC RBC Hgb Hct MCV MCH MCHC RDW Plt Count MPV Neut % (Auto) Lymph % (Auto) [place] % (Auto) Eos % (Auto) Baso % (Auto) Neut # (Auto) Lymph # (Auto) [place] # (Auto) Eos # (Auto) Baso # (Auto) WBC Differential Differential Comment PT INR APTT Sodium Potassium Chloride Carbon Dioxide Anion Gap BUN Creatinine Estimated GFR Random Glucose Calcium Total Bilirubin AST ALT Alkaline Phosphatase Total Protein Albumin Lipase Urine Color Yellow Urine Clarity Cloudy H Urine pH 8.5 Ur Specific [place] 1.010 Urine Protein Trace Urine Glucose (UA) Negative Urine Ketones Negative Urine Occult Blood Large H Urine Nitrate Positive H Urine Bilirubin Negative Urine Urobilinogen 0.2 Ur Leukocyte Esterase Large H Urine RBC 4-15 H Urine WBC 21-50 H Ur Squamous Epith Cells 0-5 Urine Bacteria Many H Micro UA Comment Cath-culture ind Ur Microscopic Review Microscopic reviewed Urine Culture Comments Cath-cult indicated Result Diagrams: 02/15/18 01:10 02/15/18 01:10 Imaging: ITS Impressions Abdomen/Pelvis CT 02/15/18 00:56 CONCLUSION: 1. Moderate to marked bilateral hydronephrosis with a distended urinary bladder despite a Underwood in place. Correlation with function of the Underwood is recommended. 5 mm right ureterovesical junction stone. Assessment and Plan - Plan 82y.o M with b/l renal and bladder stones. Rt UVJ stone 4-5mm, b/l hydro Labs and VS are stable. Has possibly blocked underwood with one of the bladder stones causing retention and worsening of hydro Large prostate - Continue care as per primary team - IV fluids, antbx. Pt cannot tolerate Flomax well, start Alfuzosin daily it will help to pass a stone - No acute intervention needed - Renal/bladder US tomorrow to reevaluate for hydro and bladder distention - monitor VS and Labs. Follow up on final UC results and treat according to C&S - Pt to f/u with urology as outpt after d/c. He has appt with [place] urology next week Tuesday Discussed Condition With: Dr Durga JACOBO attending who agrees with this plan
[2018-02-15] MEDS: Venlafaxine XR 75 MG Capsule PO SCH (15:37)
[2018-02-15] MEDS: Heparin - SQ 10,000 UNITS/ML Vial SQ SCH (20:41)
[2018-02-16] MEDS: Sod Chloride 0.9% Inj 1,000 ML IV.CONT SCH (02:00)
[2018-02-16 06:37] LABS: Baso % (Auto) 0.4 % (0.0-2.0); Eos # (Auto) 0.2 th/mm3 (0.0-0.4); Eos % (Auto) 3.8 % (0.0-4.0); Hematocrit 35.8 % (39.0-51.0); Hemoglobin 11.8 gm/dL (13.0-17.0); Lymph # (Auto) 1.1 th/mm3 (1.0-4.8); Lymph % (Auto) 21.1 % (9.0-44.0); Mean Corpuscular HGB Conc 33.1 % (32.0-36.0); Mean Corpuscular Hemoglobin 31.2 pg (27.0-34.0); Mean Corpuscular Volume 94.3 fL (80.0-100.0); Mono # (Auto) 0.7 th/mm3 (0.0-0.9); Mono % (Auto) 13.5 % (0.0-8.0); Neut % (Auto) 61.2 % (16.0-70.0); Platelet Count 253 th/mm3 (150-450); Red Cell Distribution Width 14.4 % (11.6-17.2)
[2018-02-16 06:41] LABS: INR 1.9 Ratio; Prothrombin Time 19.5 sec (9.8-11.6)
[2018-02-16 06:54] LABS: Chloride 112 meq/L (98-107); Potassium 4.1 meq/L (3.5-5.1); Sodium 144 meq/L (136-145)
[2018-02-16 07:17] LABS: Anion Gap 7 meq/L (5-15); Blood Urea Nitrogen 16 mg/dL (7-18); Calcium 8.5 mg/dL (8.5-10.1); Carbon Dioxide 25.4 meq/L (21.0-32.0); Glomerular Filtration Rate Greater Than 89 mL/min (>89); Glucose,Random 89 mg/dL (74-106)
[2018-02-16] MEDS: Senna/Docusate Sodium 8.6/50 MG Tablet PO SCH (08:20)
[2018-02-16] MEDS: Venlafaxine XR 75 MG Capsule PO SCH (08:22)
[2018-02-16] MEDS: Heparin - SQ 10,000 UNITS/ML Vial SQ SCH (08:23)
[2018-02-16 09:04] VITALS: RESP 17; O2SAT 97
--- NOTE | 2018-02-16 09:35 | P.PNIM ---
Subjective Interval history: Follow-up UTI and bilateral hydronephrosis. Patient seen and examined, sitting up in chair comfortably no apparent distress. at bedside and updated. Patient did well overnight with no further complaints. Abdominal pain and pelvic pain completely resolved. Patient is eager to go home. Awaiting ultrasound of the bladder this morning as well as urine culture. Patient discharged home [facility]. No further complaints. Denies any shortness of breath or chest pain. Eating well without any nausea vomiting or abdominal pain. Physical Exam Vital signs: Vital Signs 02/15/18 12:00 02/15/18 16:00 02/15/18 20:00 Temperature 97.1 F L 97.8 F 99.5 F Pulse Rate 68 88 81 Respiratory Rate 20 20 21 Blood Pressure 106/54 L 130/58 L 119/56 L Pulse Oximetry 99 97 97 02/16/18 00:00 02/16/18 08:00 Temperature 97.6 F 97.0 F L Pulse Rate 78 82 Respiratory Rate 20 17 Blood Pressure 147/62 H 133/73 Pulse Oximetry 98 97 Intake & Output 02/15/18 02/16/18 02/16/18 18:59 06:59 18:59 Intake Total 920 / 920 1410 / 1410 Output Total 400 / 400 900 / 900 Balance 520 / 520 510 / 510 Weight 57.2 kg Intake: IV 800 / 800 930 / 930 NS Inj 1,000 ML @ 70 mls/hr IV. 800 / 800 830 / 830 CONT .[id number] MAKENZIE Rx#: [id number] Rocephin Inj 1,000 MG In NS Inj 100 / 100 100 ML @ 200 mls/hr IV.SIG Q24H MAKENZIE Rx#:[id number] Oral 120 / 120 480 / 480 Output: Urine 900 / 900 Urine Amount (Catheter) 400 / 400 Indwelling Urethral Catheter 400 / 400 Narrative: GENERAL: Well-developed, well-nourished patient in NAD. SKIN: Warm and dry. No rash. HEAD: Normocephalic. Atraumatic. EYES: Pupils equal and round. No scleral icterus. No injection or drainage. ENT: No nasal bleeding or discharge. Mucous membranes pink and moist. NECK: Supple. Trachea midline. CARDIOVASCULAR: Regular rate and rhythm. S1, S2 noted. RESPIRATORY: No accessory muscle use. Clear to auscultation. Breath sounds equal bilaterally. GASTROINTESTINAL: Abdomen soft, non-tender, nondistended. Normoactive bowel sounds x4. : Melendez catheter in place with clear yellow urine. MUSCULOSKELETAL: No obvious deformities. Extremities without clubbing, cyanosis , or edema. NEUROLOGICAL: Awake and alert. No obvious cranial nerve deficits. Motor grossly within normal limits. 5/5 muscle strength in bilateral upper and lower extremities. Normal speech. PSYCHIATRIC: Appropriate mood and affect; insight and judgment normal. - Urinary Catheter Management Indwelling Urethral Catheter Cath placed during this visit: yes Reason for continuing: Chronic Urinary Retention Insertion date: 02/15/18 Insertion time: 03:00 Results - Labs CBC & Chem 7: 02/16/18 05:20 02/16/18 05:20 Laboratory Results - last 24 hr 02/16/18 02/16/18 02/16/18 05:20 05:20 05:20 CBC w Diff Auto diff final WBC 5.0 RBC 3.80 L Hgb 11.8 L Hct 35.8 L MCV 94.3 D MCH 31.2 MCHC 33.1 RDW 14.4 Plt Count 253 MPV 8.0 Neut % (Auto) 61.2 Lymph % (Auto) 21.1 [place] % (Auto) 13.5 H Eos % (Auto) 3.8 Baso % (Auto) 0.4 Neut # (Auto) 3.0 Lymph # (Auto) 1.1 [place] # (Auto) 0.7 Eos # (Auto) 0.2 Baso # (Auto) 0.0 WBC Differential . Differential Comment . PT 19.5 H INR 1.9 Sodium 144 Potassium 4.1 Chloride 112 H Carbon Dioxide 25.4 Anion Gap 7 BUN 16 Creatinine 0.72 Estimated GFR Greater than 89 Random Glucose 89 Calcium 8.5 D Assessment and Plan - Assessment (1) Hydronephrosis Code(s): N13.30 - Unspecified hydronephrosis Status: Acute (2) Acute bilateral obstructive uropathy Code(s): N13.9 - Obstructive and reflux uropathy, unspecified Status: Acute - Plan This is an 82-year-old male patient with: Bilateral hydronephrosis, right nephrolithiasis History of urinary retention with chronic Melendez catheter Enlarged prostate Abnormal UA rule out UTI -Melendez catheter has been changed to ED. Abdominal pain has improved. Abdominal /pelvis CT has been done showing bilateral hydronephrosis with a right 5 millimeter stone in the UVJ. Repeat ultrasound this morning showing mild improvement. Symptoms have improved significantly. -Urology consulted, input and recommendations appreciated. Continue with Melendez catheter upon discharge. Follow-up with [place] urologist. -UA showing presence of nitrite as well as leukocyte esterase white blood cells. Urine culture pending. Will follow post discharge. Patient started on ceftriaxone IV in ED and continued during hospitalization. Placed on Bactrim for discharge. -Patient was given IV fluids during hospitalization. Tolerating p.o. intake without any problems. -Pain control with IV morphine as needed per pain scale. Pain well controlled. Diarrhea, resolved. DVT prophylaxis: SCDs. Heparin. Discharge home. Follow-up PCP and urology at the [place]. Prescriptions as ordered. Activity as tolerated. Diet as tolerated. Discharge Planning: [place] home today.
--- NOTE | 2018-02-16 11:31 | US ---
EXAM DATE: 02/16/2018 7:00 AM EDT AGE/SEX: 82 years / Male INDICATIONS: Hydronephrosis with chronic Melendez catheter. CLINICAL DATA: This is the patient's initial encounter. Patient reports that signs and symptoms have been present for 1 day and indicates a pain score of 0/10. MEDICAL/SURGICAL HISTORY: Hypertension. Cardiovascular disease. Renal calculi. Renal failure . Olivier's disease. Frequent UTI. Appendectomy. Tonsillectomy. Cardiac catheterization. Left knee surgery. Kidney surgery. COMPARISON: O, CT ABDOMEN & PELVIS W/O CONTRAST, 02/15/2018. . MEASUREMENTS: Right Kidney:__11.2 x 5.0 x 4.7 cm Left Kidney:__11.8 x 4.1 x 3.7 cm FINDINGS: Right Kidney: Redemonstration of a dominant 1.5 x 0.6 x 1.5 cm calculus in the mid to inferior pole. Diffusely increased cortical echogenicity. Mild to moderate hydronephrosis improved from CT exam. Left Kidney: Redemonstration of 2 dominant renal calculi measuring 1.3 x 1.0 x 1.6 cm in the inferior pole and 0.8 x 0.3 x 0.9 cm in the midpole. Diffusely increased cortical echogenicity with moderate hydronephrosis, improved from CT exam. Bladder: Melendez catheter is present. Bladder decompressed. Multiple echogenic foci in the bladder with the largest measuring 4 mm. Other: None. CONCLUSION: 1. Redemonstration of bilateral renal calculi and bladder calculi, as above. 2. Mild to moderate right and moderate residual left hydronephrosis following Melendez decompression. T his is moderately improved on the right and mildly improved on the left in comparison to prior CT exa m. Electronically signed by: Veto Riley MD 02/16/2018 11:30 AM EDT
[2018-02-16 12:37] VITALS: BP 141/78; PULSE 81; TEMP 97.2
== END 2018-02-16 13:08 | disposition home or self-care (01) ==
LOC: PHED 00:11 → PHEDA 00:11 → PH3 06:30
PROVIDERS: ADMIT Internal Medicine; ATTEND Internal Medicine